=== PATIENT | female | born 1960 | race Caucasian/White ===

== ENCOUNTER 2019-09-28 22:06 | Inpatient (IN) | payer OTHER, SELFPAY ==
[~2019-09-28] VITALS: Ht 167.6 cm; Wt 90.7 kg
[2019-09-28 23:14] LABS: UA SPECIFIC GRAVITY 1.015 (1.005-1.035); microscopic required? YES; urine erythrocyte NEGATIVE (NEGATIVE)
[2019-09-28 23:29] LABS: PLATELET COUNT 522 x10^3mcL (130-400); RED CELL DISTRIBUTION WIDTH 16.6 % (11.5-14.5)
[2019-09-28 23:38] LABS: BILIRUBIN TOTAL 0.3 mg/dL (0.20-1.00); CALCIUM 7.6 mg/dL (8.5-10.1); CREATININE SERUM 3.2 mg/dL (0.6-1.0); MAGNESIUM 1.9 mg/dL (1.8-2.4); POTASSIUM SERUM 4.2 mmol/L (3.5-5.1); TOTAL PROTEIN, SERUM 7.2 g/dL (6.4-8.2)
[2019-09-28 23:40] LABS: BAND NEUTROPHIL 5 % (0-10); MONOCYTE 4 % (0-7); SEGMENTED NEUTROPHILS 88 % (37-75); rbc morphology (normal/abnorm) ABNORMAL (NORMAL)
[2019-09-28 23:41] LABS: ALBUMIN 1.6 g/dL (3.4-5.0); PLATELET MORPHOLOGY PLATELETS INCREASED
[2019-09-29] MEDS ORDERED: ATORVASTATIN CA40 M1 PO (00:17)
[2019-09-29] MEDS ORDERED: CARVEDILOL ER40 MG PO (00:18)
[2019-09-29] MEDS ORDERED: SENSIPAR30 M1 PO (00:19)
[2019-09-29] MEDS ORDERED: CALCIUM CARBO1250 MG PO (00:19)
[2019-09-29] MEDS ORDERED: ACIDOPHILUS LA1 EAC1 PO (00:19)
[2019-09-29] MEDS ORDERED: VITAMIN D22000 I1 PO (00:20)
[2019-09-29] MEDS ORDERED: LASIX40 MG PO (00:20)
[2019-09-29] MEDS ORDERED: FEOSOL65 M1 PO (00:20)
[2019-09-29] MEDS ORDERED: VITAMIN C500 M6 PO (00:21)
[2019-09-29] MEDS ORDERED: SOD650 PO (00:21)
[2019-09-29] MEDS ORDERED: HORIZANT300 MG PO (00:21)
[2019-09-29] MEDS ORDERED: PLAVIX75 M1 PO (00:21)
[2019-09-29] MEDS ORDERED: ZINC SULFATE220 M2 PO (00:22)
[2019-09-29] MEDS ORDERED: DOC-Q-LACE100 MG PO (00:22)
[2019-09-29] MEDS ORDERED: LANTI SQ (00:24)
[2019-09-29] MEDS ORDERED: HUMULIN R100 U/1 M1 SQ (00:24)
[2019-09-29] MEDS ORDERED: ULTRAM50 MG PO (00:24)
[2019-09-29 03:13] LABS: CALCIUM 7.2 mg/dL (8.5-10.1); CARBON DIOXIDE 23.3 mmol/L (21-32); CREATININE SERUM 3.1 mg/dL (0.6-1.0); PHOSPHOROUS 2.7 mg/dL (2.5-4.9); POTASSIUM SERUM 4.3 mmol/L (3.5-5.1)
[2019-09-29 03:17] LABS: PHOSPHOROUS 2.7 mg/dL (2.5-4.9)
[2019-09-29 03:18] LABS: RED CELL DISTRIBUTION WIDTH 16.8 % (11.5-14.5)
[2019-09-29 03:19] LABS: PLATELET COUNT 514 x10^3mcL (130-400)
[2019-09-29 03:22] LABS: T3 TOTAL 0.42 ng/mL
[2019-09-29 03:32] LABS: BAND NEUTROPHIL 6 % (0-10); MONOCYTE 4 % (0-7); PLATELET MORPHOLOGY PLATELETS INCREASED; SEGMENTED NEUTROPHILS 87 % (37-75); rbc morphology (normal/abnorm) ABNORMAL (NORMAL)
[2019-09-29 03:48] LABS: CHOLESTEROL/HDL RATIO 2.2; FREE THYROXINE INDEX 1.4 ug/dL (1.4-4.5); T4(THYROXINE) 3.7 ug/dL (4.7-13.3)
[2019-09-29 03:58] LABS: C REACTIVE PROTEIN 22.7 mg/dL (<=0.9)
[2019-09-29 04:05] VITALS: BP 105/52
[2019-09-29 05:48] VITALS: BP 119/56
[2019-09-29 09:59] VITALS: BP 122/54
[2019-09-29 13:25] VITALS: Ht 167.6 cm; Wt 90.7 kg
[2019-09-29 13:46] VITALS: BP 114/69
[2019-09-29 15:42] LABS: AMPHETAMINE QUAL UR NONE DETECTED (See below)
[2019-09-29 16:53] VITALS: BP 120/54
[2019-09-29 22:44] VITALS: BP 134/62
[2019-09-30 06:06] VITALS: BP 114/57
[2019-09-30 07:59] LABS: BASOPHIL % 0 % (0-2); PLATELET COUNT 482 x10^3mcL (130-400); RED CELL DISTRIBUTION WIDTH 17.2 % (11.5-14.5)
[2019-09-30 09:06] LABS: BILIRUBIN TOTAL 0.3 mg/dL (0.20-1.00); CALCIUM 6.8 mg/dL (8.5-10.1); CARBON DIOXIDE 20.2 mmol/L (21-32); CREATININE SERUM 3.1 mg/dL (0.6-1.0); POTASSIUM SERUM 3.8 mmol/L (3.5-5.1); TOTAL PROTEIN, SERUM 6.4 g/dL (6.4-8.2)
[2019-09-30 09:11] VITALS: BP 119/56
[2019-09-30 09:38] LABS: ALBUMIN 1.3 g/dL (3.4-5.0)
[2019-09-30 14:05] VITALS: BP 118/64
[2019-09-30 16:56] VITALS: BP 135/56
[2019-09-30 21:17] VITALS: BP 125/62
[2019-10-01 05:39] VITALS: BP 127/61
[2019-10-01 07:15] LABS: CALCIUM 6.7 mg/dL (8.5-10.1); CARBON DIOXIDE 18.4 mmol/L (21-32); CREATININE SERUM 2.7 mg/dL (0.6-1.0); MAGNESIUM 2.1 mg/dL (1.8-2.4); POTASSIUM SERUM 4.3 mmol/L (3.5-5.1)
[2019-10-01 07:33] LABS: PLATELET COUNT 540 x10^3mcL (130-400); RED CELL DISTRIBUTION WIDTH 16.8 % (11.5-14.5)
[2019-10-01 09:10] VITALS: BP 131/59
[2019-10-01 10:35] LABS: BAND NEUTROPHIL 7 % (0-10); BASOPHIL 0 % (0-2); MONOCYTE 3 % (0-7); PLATELET MORPHOLOGY PLATELETS INCREASED; SEGMENTED NEUTROPHILS 85 % (37-75); rbc morphology (normal/abnorm) ABNORMAL (NORMAL); tear drop cell (dacryocyte) 1+
[2019-10-01 12:29] VITALS: BP 123/69
[2019-10-01 17:17] VITALS: BP 131/62
[2019-10-01 20:18] VITALS: BP 123/66
[2019-10-02 05:26] VITALS: BP 123/59
[2019-10-02 07:31] LABS: CALCIUM 6.6 mg/dL (8.5-10.1); CARBON DIOXIDE 21.4 mmol/L (21-32); CREATININE SERUM 2.6 mg/dL (0.6-1.0); MAGNESIUM 2.1 mg/dL (1.8-2.4); POTASSIUM SERUM 4.1 mmol/L (3.5-5.1)
[2019-10-02 07:34] LABS: BASOPHIL % 0 % (0-2); PLATELET COUNT 548 x10^3mcL (130-400); RED CELL DISTRIBUTION WIDTH 16.8 % (11.5-14.5)
[2019-10-02 09:25] VITALS: BP 107/54
[2019-10-02 12:35] VITALS: BP 118/59
[2019-10-02 16:40] VITALS: BP 134/67
[2019-10-02 21:58] VITALS: BP 129/60
[2019-10-03 05:50] VITALS: BP 133/68
[2019-10-03 07:09] LABS: BASOPHIL % 0.4 % (0-2)
[2019-10-03 07:27] LABS: RED CELL DISTRIBUTION WIDTH 16.8 % (11.5-14.5)
[2019-10-03 07:32] LABS: PLATELET COUNT 549 x10^3mcL (130-400)
[2019-10-03 07:57] LABS: CALCIUM 7.1 mg/dL (8.5-10.1); CARBON DIOXIDE 22.1 mmol/L (21-32); CREATININE SERUM 2.3 mg/dL (0.6-1.0); MAGNESIUM 2.1 mg/dL (1.8-2.4); POTASSIUM SERUM 4.2 mmol/L (3.5-5.1)
[2019-10-03 09:19] VITALS: BP 119/62
[2019-10-03 13:45] VITALS: BP 129/66
[2019-10-03 17:46] VITALS: BP 136/76
[2019-10-03 21:08] VITALS: BP 129/69
[2019-10-04 05:33] VITALS: BP 138/72
[2019-10-04 07:49] VITALS: BP 124/66
[2019-10-04 08:26] LABS: BASOPHIL % 0.3 % (0-2)
[2019-10-04 08:49] LABS: CALCIUM 7.1 mg/dL (8.5-10.1); CREATININE SERUM 2.1 mg/dL (0.6-1.0); PHOSPHOROUS 2.8 mg/dL (2.5-4.9); POTASSIUM SERUM 4.1 mmol/L (3.5-5.1)
[2019-10-04 11:29] LABS: PLATELET COUNT 584 x10^3mcL (130-400)
[2019-10-04 16:45] VITALS: BP 128/69
[2019-10-04 17:14] VITALS: BP 131/64
[2019-10-04 21:29] VITALS: BP 137/75
[2019-10-05 05:55] VITALS: BP 118/61
[2019-10-05 07:53] VITALS: BP 124/64
[2019-10-05 09:07] LABS: CALCIUM 6.9 mg/dL (8.5-10.1); CARBON DIOXIDE 18.4 mmol/L (21-32); POTASSIUM SERUM 4.4 mmol/L (3.5-5.1)
[2019-10-05 09:57] LABS: BASOPHIL % 0.1 % (0-2); PLATELET COUNT 494 x10^3mcL (130-400); RED CELL DISTRIBUTION WIDTH 18.3 % (11.5-14.5)
[2019-10-05 12:29] VITALS: BP 123/63
[2019-10-05 20:59] VITALS: BP 132/80
[2019-10-06 05:58] VITALS: BP 116/63
[2019-10-06 07:37] VITALS: BP 122/68
[2019-10-06 13:28] VITALS: BP 127/64
[2019-10-06 16:49] VITALS: BP 129/70
[2019-10-06 20:26] VITALS: BP 132/70
[2019-10-07 05:32] VITALS: BP 150/77
[2019-10-07 07:30] VITALS: BP 141/82
[2019-10-07 08:22] LABS: CALCIUM 7.2 mg/dL (8.5-10.1); CARBON DIOXIDE 18.3 mmol/L (21-32); CREATININE SERUM 1.9 mg/dL (0.6-1.0); POTASSIUM SERUM 4.6 mmol/L (3.5-5.1)
[2019-10-07 09:00] LABS: BASOPHIL % 0.2 % (0-2)
[2019-10-07] MEDS ORDERED: PRO20I SC (09:05)
[2019-10-07] MEDS ORDERED: LAC PO (09:05)
[2019-10-07] MEDS ORDERED: MERREM IV1 GM INJ (09:07)
[2019-10-07] MEDS ORDERED: VANCOMYCIN1 GM/2001 IV (09:09)
[2019-10-07 09:31] LABS: PLATELET COUNT 523 x10^3mcL (130-400)
[2019-10-07 12:02] VITALS: BP 148/78
[2019-10-07 16:00] VITALS: BP 148/83
[2019-10-07 16:19] VITALS: BP 141/82
== END 2019-10-07 18:36 | DRG 710 ==
LOC: ED 22:06 → DU 09-29 00:31
PROVIDERS: Emergency Medicine; Family Medicine; Internal Medicine Nephrology; Surgery; ADMIT Internal Medicine; ATTEND Internal Medicine
PROC: 0KBQ0ZZ Excision of Right Upper Leg Muscle, Open Approach (ICD-10-PCS; 2019-10-04)
PROC: 30233N1 Transfusion of Nonautologous Red Blood Cells into Peripheral Vein, Percutaneous Approach (ICD-10-PCS; 2019-10-04)
PROC: 0KBR0ZZ Excision of Left Upper Leg Muscle, Open Approach (ICD-10-PCS; principal; 2019-10-04 09:30)
DX: A41.9 Sepsis, unspecified organism (principal); J96.01 Acute respiratory failure with hypoxia; E43 Unspecified severe protein-calorie malnutrition; G93.41 Metabolic encephalopathy; J18.9 Pneumonia, unspecified organism; N17.9 Acute kidney failure, unspecified; I42.9 Cardiomyopathy, unspecified; E11.21 Type 2 diabetes mellitus with diabetic nephropathy; N18.4 Chronic kidney disease, stage 4 (severe); E88.09 Other disorders of plasma-protein metabolism, not elsewhere classified; D47.3 Essential (hemorrhagic) thrombocythemia; D64.9 Anemia, unspecified; E87.1 Hypo-osmolality and hyponatremia; E86.0 Dehydration; L97.919 Non-pressure chronic ulcer of unspecified part of right lower leg with unspecified severity; E78.5 Hyperlipidemia, unspecified; Z88.6 Allergy status to analgesic agent; Z88.0 Allergy status to penicillin; Z88.3 Allergy status to other anti-infective agents; F41.9 Anxiety disorder, unspecified; Z79.4 Long term (current) use of insulin; L97.929 Non-pressure chronic ulcer of unspecified part of left lower leg with unspecified severity; E02 Subclinical iodine-deficiency hypothyroidism; I25.10 Atherosclerotic heart disease of native coronary artery without angina pectoris; N25.81 Secondary hyperparathyroidism of renal origin; N20.0 Calculus of kidney; Z20.828 Contact with and (suspected) exposure to other viral communicable diseases; E11.22 Type 2 diabetes mellitus with diabetic chronic kidney disease; L03.116 Cellulitis of left lower limb; L03.115 Cellulitis of right lower limb; E66.9 Obesity, unspecified; Z71.3 Dietary counseling and surveillance; Z68.32 Body mass index [BMI] 32.0-32.9, adult; I50.22 Chronic systolic (congestive) heart failure; K92.2 Gastrointestinal hemorrhage, unspecified
CPT/HCPCS: 82962; 83880; 83970; 84439; 85378; 87046; 87046-59; 87804; 97110-GP; 97116-GP; 97530-GP; G0378; J0456; J0610; J0885-EC; J1170; J2001; J2185; J2250; J3370; J3490; J7030; J7040; J7050; P9016; Q0092; U0003-CS